=== PATIENT | female | born 1955 | race Caucasian/White ===

== ENCOUNTER 2018-02-08 07:59 | Observation (INO) | payer OTHER ==
[~2018-02-08 07:59] MED LIST: CEFAZOLIN 1 GM INJ; METOCLOPRAMIDE 10 MG INJ; ONDANSETRON 4 MG INJ; SOD CHLORIDE 0.9% 1,000 ML IV
[2018-02-08] MEDS ORDERED: FENTAnyl 50 MCG/ML VIAL (14:24)
[2018-02-08] MEDS ORDERED: MIDAZOLAM 1 MG/ML 2 ML INJ (14:24)
[2018-02-08] MEDS ORDERED: LIDOCAINE 2% (SDV) 5 ML INJ (14:25)
[2018-02-08] MEDS ORDERED: PROPOFOL 20 ML (14:25)
[2018-02-08] MEDS ORDERED: DEXAMETHASONE 4 MG/ML 1 ML INJ (14:25)
[2018-02-08] MEDS ORDERED: PHENYLephrine (100 MCG/ML) 5ML SYG (15:20)
[2018-02-08] MEDS ORDERED: HYDROmorphONE (0.2 MG/ML) 10ML SYG IV ×4 (16:00→16:30)
[2018-02-08] MEDS ORDERED: ONDANSETRON 4 MG INJ IV ×2 (16:00→16:30)
[2018-02-08] MEDS ORDERED: ACETAMINOPHEN 1000MG/100ML IV 100 ML IVPB (16:00)
[2018-02-08] MEDS ORDERED: IPRATROPIUM (NEB) 0.5 MG/2.5 ML AMP HHN ×2 (16:00→16:30)
[2018-02-08] MEDS ORDERED: FENTAnyl 50 MCG/ML VIAL IV ×2 (16:00→16:30)
[2018-02-08] MEDS ORDERED: KETOROLAC 30 MG INJ IV ×2 (16:00→16:30)
[2018-02-08] MEDS: ISOSULFAN BLUE 1% 5 ML INJ SC (16:22)
[2018-02-08] MEDS: CEFAZOLIN 2 GM/50 ML (PMX) 50 ML IVPB (16:27)
[2018-02-08] MEDS: FENTAnyl 50 MCG/ML VIAL IV (16:33)
[2018-02-08] MEDS: ONDANSETRON 4 MG INJ IV (16:34)
[2018-02-08] MEDS: D5W-0.45 NACL + KCL 20 MEQ 1,000 ML IV (18:16)
[2018-02-08] MEDS ORDERED: SALMETEROL/FLUTICASONE 250/50 INHA INH (19:00)
[2018-02-08] MEDS: SALMETEROL/FLUTICASONE 250/50 INHA INH (21:39)
[2018-02-08] MEDS: ATORVASTATIN 40 MG TAB PO (21:40)
[2018-02-08] MEDS: morphine 2 MG INJ IV ×2 (21:48→23:38)
[2018-02-09] MEDS: D5W-0.45 NACL + KCL 20 MEQ 1,000 ML IV ×2 (02:02→07:59)
[2018-02-09] MEDS: PANTOPRAZOLE (EC) 40 MG TAB PO (06:20)
[2018-02-09 06:42] LABS: ANION GAP 15 (8-16); BLOOD UREA NITROGEN 18 mg/dl (7-20); CALCIUM 9.6 mg/dl (8.4-10.2); CARBON DIOXIDE 24 mmol/L (21-31); CHLORIDE 109 mmol/L (97-110); CREATININE 0.63 mg/dl (0.44-1.00); GLUCOSE 141 mg/dl (70-220); POTASSIUM 4.4 mmol/L (3.5-5.1); SODIUM 144 mmol/L (135-144)
[2018-02-09 08:02] LABS: ADD MAN DIFF? NO
[2018-02-09 08:04] LABS: WHITE BLOOD COUNT 10.4 10^3/ul (4.8-10.8)
[2018-02-09 08:04] LABS: BASOPHILS % 0.2 % (0.0-2.0); EOSINOPHILS % 0.1 % (0.0-7.0); HEMATOCRIT 39.8 % (37.0-47.0); HEMOGLOBIN 13.2 g/dl (12.0-16.0); LYMPHOCYTES # 1.4 10^3/ul (0.8-2.9); LYMPHOCYTES % 13.9 % (15.0-51.0); MEAN CORPUSCULAR HGB CONC 33.2 g/dl (32.0-37.0); MEAN CORPUSCULAR VOLUME 90.5 fl (82.0-101.0); MEAN PLATELET VOLUME 11.3 fl (7.4-10.4); MONOCYTE # 0.6 10^3/ul (0.3-0.9); MONOCYTES % 5.4 % (0.0-11.0); NEUTROPHIL # 8.3 10^3/ul (1.6-7.5); NEUTROPHILS % 79.8 % (39.0-77.0); PLATELET COUNT 220 10^3/UL (140-415); RED CELL DISTRIBUTION WIDTH 14.1 % (11.5-14.5)
[2018-02-09] MEDS: SALMETEROL/FLUTICASONE 250/50 INHA INH (08:14)
[2018-02-09] MEDS ORDERED: NON-FORMULARY/PATIENT OWN MED (Omeprazole* 40 MG) PO (09:00)
[2018-02-11] MEDS ORDERED: ASPIRIN (EC) 81 MG TAB PO (09:00)
== END 2018-02-09 14:33 | disposition home or self-care (01) ==
LOC: SDS 07:59 → MS1 16:00
DX: C50.411 Malignant neoplasm of upper-outer quadrant of right female breast (principal); E78.5 Hyperlipidemia, unspecified; F17.200 Nicotine dependence, unspecified, uncomplicated; J44.9 Chronic obstructive pulmonary disease, unspecified; M81.0 Age-related osteoporosis without current pathological fracture; M19.90 Unspecified osteoarthritis, unspecified site; Z79.82 Long term (current) use of aspirin
CPT/HCPCS: 19301; 71045; 80048; 85025; 88307; 88331; 88342; 93005

== ENCOUNTER 2019-01-28 06:03 | Day surgery (SDC) | payer OTHER ==
[2019-01-28] MEDS ORDERED: PROPOFOL 40 ML (07:27)
[2019-01-28] MEDS ORDERED: FENTAnyl 50 MCG/ML VIAL IV (08:00)
== END 2019-01-28 10:24 | disposition home or self-care (01) ==
LOC: GIL 06:03
DX: Z12.11 Encounter for screening for malignant neoplasm of colon (principal); K64.8 Other hemorrhoids; K29.60 Other gastritis without bleeding
CPT/HCPCS: 43239; 88305; 88312